=== PATIENT | female | born 1985 | race Caucasian/White ===

== ENCOUNTER 2021-09-01 04:35 | Emergency (ER) | payer OTHER ==
[~2021-09-01] VITALS: Ht 180.3 cm; Wt 116.6 kg
[2021-09-01 05:10] VITALS: BP_SYST 148
--- NOTE | 2021-09-01 05:18 | NUR ---
PT HAS HX OF KIDNEY STONES, PAIN STARTED TO RIGHT FLANK RADIATING INTO ADB 3 DAYS AGO. NO PAIN WITH URINATION, HAS NOTICED SMALL AMOUNT OF BLOOD IN URINE. PT AFEBRILE, HAS HAD NAUSEA WITH OCCASSIONAL VOMITING. RATES PAIN 6/10. PT PLACED ON GURNEY, BED IN LOWEST POSITION,LOCKED,ANDSIDERAIL UP X 1.
--- NOTE | 2021-09-01 05:22 | NUR ---
PT PROVIDED WITH UA CUP
--- NOTE | 2021-09-01 05:37 | NUR ---
DR WIGGINS AT BEDSIDE
[2021-09-01] MEDS: NACL 0.9% 1,000 ML IV ONE (06:02)
[2021-09-01] MEDS: ONDANSETRON HCL 4 MG/2 ML VIAL IVP ONE (06:03)
[2021-09-01] MEDS: KETOROLAC TROMETHAMINE 30 MG VIAL IVP ONE (06:03)
[2021-09-01] MEDS ORDERED: KETOROLAC TROMETHAMINE 30 MG VIAL ONE (06:05)
--- NOTE | 2021-09-01 06:09 | NUR ---
IV ESTABLISHED AND LABS COLLECTED AND WALKED TO LAB, MEDICATED ORDERED
[2021-09-01 06:12] LABS: BASOPHILS # (AUTO) 0.1 K/uL (0.0-0.2); BASOPHILS % (AUTO) 0.5 % (0.0-2.0); EOSINOPHILS # (AUTO) 0.3 K/uL (0.0-0.4); EOSINOPHILS % (AUTO) 2.1 % (0.0-4.0); HEMATOCRIT 42.7 % (36-48); HEMOGLOBIN 13.9 g/dL (12.0-16.0); LYMPHOCYTES # (AUTO) 1.5 K/uL (1.0-5.5); LYMPHOCYTES % (AUTO) 12.6 % (20.5-51.5); MEAN CORPUSCULAR HEMOGLOBIN 30 pg (27-31); MEAN CORPUSCULAR HGB CONC 33 % (32-36); MEAN CORPUSCULAR VOLUME 92 fL (79.0-98.0); MONOCYTES # (AUTO) 0.6 K/uL (0.0-1.0); MONOCYTES % (AUTO) 5.2 % (1.7-9.3); NEUTROPHILS # (AUTO) 9.6 K/uL (1.8-7.7); NEUTROPHILS % (AUTO) 79.6 % (40.0-70.0); PLATELET COUNT (AUTO) 293 K/uL (130-430); RED BLOOD CELL COUNT(AUTO) 4.65 MIL/uL (4.2-6.2); RED CELL DISTRIBUTION WIDTH 14.5 % (9.0-15.0)
--- NOTE | 2021-09-01 06:20 | NUR ---
PT STILL HAVING FLANK AND ABD PAIN, TORADOL DID NOT HELP PAIN.
[2021-09-01] MEDS: MORPHINE 4 MG INJ. 4 MG/ML VIAL IVP ONE (06:26)
[2021-09-01 06:30] LABS: CALCIUM 8.7 mg/dL (8.4-11.0); CREATININE 0.8 mg/dL (0.55-1.30); POTASSIUM 3.9 mmol/L (3.5-5.1)
[2021-09-01 06:36] LABS: ALBUMIN 3.8 g/dL (3.4-4.8); TOTAL BILIRUBIN 0.3 mg/dL (0.0-1.0)
--- NOTE | 2021-09-01 07:05 | NUR ---
PT AMBULATED TO RESTROOMTO PROVIDE UA SPECIMEN
--- NOTE | 2021-09-01 07:21 | NUR ---
REPORT GIVEN TO PARDEEP BRISENO
--- NOTE | 2021-09-01 07:39 | NUR ---
OPENING NOTE: REPORT RECEIVED FROM RN USING SBAR REPORTING. ALL CARE ASSUMED.
[2021-09-01 08:10] LABS: BILIRUBIN,URINE NEGATIVE (NEGATIVE); BLOOD, URINE 2+ (NEGATIVE); COLOR,URINE YELLOW (YELLOW); GLUCOSE,URINE NEGATIVE (NEGATIVE); KETONES,URINE NEGATIVE (NEGATIVE); LEUKOCYTE ESTERASE ,URINE NEGATIVE (NEGATIVE); NITRITE, URINE NEGATIVE (NEGATIVE); PROTEIN URINE NEGATIVE (NEGATIVE); UROBILINOGEN,URINE 0.2 (0.2-1.0)
[2021-09-01 08:46] LABS: CLARITY/URINE SLIGHTLY HAZY (CLEAR)
[2021-09-01 08:52] LABS: BACTERIA,URINE FEW /HPF (None Seen); WBC,URINE NONE SEEN /HPF (0-3)
--- NOTE | 2021-09-01 09:38 | NUR ---
BRAYAN ALFREDO at bedside examining patient.
[2021-09-01] MEDS ORDERED: IBUP-1969 PO (10:04)
[2021-09-01] MEDS ORDERED: ONDA-8 TL (10:04)
[2021-09-01] MEDS ORDERED: OXYC-128 PO (10:04)
[2021-09-01 10:21] VITALS: BP_SYST 148
== END 2021-09-01 10:21 | disposition home or self-care (01) ==
LOC: SED 04:35
DX: N13.2 Hydronephrosis with renal and ureteral calculous obstruction (principal); Z88.0 Allergy status to penicillin; Z88.1 Allergy status to other antibiotic agents; Z88.2 Allergy status to sulfonamides
CPT/HCPCS: 36415; 74176; 76376; 80053; 81000; 81025; 85025; 96361; 96374; 96375; 99284; J1885; J2270; J2405; J7030

== ENCOUNTER 2021-10-04 23:03 | Emergency (ER) | payer MEDICAID, OTHER ==
[~2021-10-04] VITALS: Ht 154.9 cm; Wt 117.9 kg
[~2021-10-04 23:03] MED LIST: IBUP-1969 PO; ONDA-8 TL; OXYC-128 PO
[2021-10-04 23:24] VITALS: BP_SYST 145
--- NOTE | 2021-10-04 23:30 | NUR ---
Patient triaged and placed in waiting room. VSS and patient appears in no acute distress at this time. Accompanied by SELF, awaiting available bed, and MD notified of need for MSE.
--- NOTE | 2021-10-04 23:32 | NUR ---
WALKED IN C/O LOW BACK PAIN X1 WEEK. WAS SEEN AT [facility] [place] AND DX WITH 3 KIDNEY STONES. 2 ON RIGHT AND 1 LEFT. GIVEN RX OF NORCO 5 AND MOTRIN, KEFLEX LAST TAKEN AT NOON.
[2021-10-05 00:19] LABS: MEAN CORPUSCULAR VOLUME 91 fL (79.0-98.0)
[2021-10-05 00:25] LABS: BASOPHILS # (AUTO) 0.2 K/uL (0.0-0.2); EOSINOPHILS % (AUTO) 6.4 % (0.0-4.0); HEMATOCRIT 39.7 % (36-48); HEMOGLOBIN 12.9 g/dL (12.0-16.0); LYMPHOCYTES # (AUTO) 2.5 K/uL (1.0-5.5); LYMPHOCYTES % (AUTO) 15.8 % (20.5-51.5); MEAN CORPUSCULAR HEMOGLOBIN 30 pg (27-31); MEAN CORPUSCULAR HGB CONC 33 % (32-36); MONOCYTES # (AUTO) 0.8 K/uL (0.0-1.0); MONOCYTES % (AUTO) 5.2 % (1.7-9.3); NEUTROPHILS # (AUTO) 11.3 K/uL (1.8-7.7); NEUTROPHILS % (AUTO) 71.6 % (40.0-70.0); PLATELET COUNT (AUTO) 288 K/uL (130-430); RED BLOOD CELL COUNT(AUTO) 4.37 MIL/uL (4.2-6.2); RED CELL DISTRIBUTION WIDTH 14.4 % (9.0-15.0); WHITE BLOOD COUNT (AUTO) 15.7 K/uL (4.8-10.8)
[2021-10-05] MEDS ORDERED: TAMSULOSIN HCL 0.4 MG CAP PO STA (00:31)
[2021-10-05 00:34] LABS: CALCIUM 8.8 mg/dL (8.4-11.0); CREATININE 0.94 mg/dL (0.55-1.30); POTASSIUM 4.2 mmol/L (3.5-5.1)
[2021-10-05 00:38] LABS: ALBUMIN 3.5 g/dL (3.4-4.8); TOTAL BILIRUBIN 0.2 mg/dL (0.0-1.0)
[2021-10-05] MEDS ORDERED: KETOROLAC TROMETHAMINE 30 MG VIAL IM ONE (00:45)
--- NOTE | 2021-10-05 00:58 | NUR ---
Received patient to ER w/ c/o right flank pain. h/o kidney stones. Introduced self to patient positioned for comfort. Patient resting quietly. No acute distress noted. Vital signs within normal range. Medicated w/ toradol 30mg im to left deltoid per MD orders. Will cont to monitor and observe for any adverse reaction. Urine specimen collected and analyzed in lab. Results pending and to be given to ER MD.
[2021-10-05] MEDS ORDERED: TAMSULOSIN HCL 0.4 MG CAP ONE (01:04)
[2021-10-05 02:44] LABS: BILIRUBIN,URINE NEGATIVE (NEGATIVE); BLOOD, URINE 3+ (NEGATIVE); CLARITY/URINE CLEAR (CLEAR); COLOR,URINE YELLOW (YELLOW); GLUCOSE,URINE NEGATIVE (NEGATIVE); KETONES,URINE NEGATIVE (NEGATIVE); LEUKOCYTE ESTERASE ,URINE 1+ (NEGATIVE); NITRITE, URINE NEGATIVE (NEGATIVE); PROTEIN URINE TRACE (NEGATIVE); UROBILINOGEN,URINE 0.2 (0.2-1.0)
[2021-10-05] MEDS ORDERED: ONDA-8 TL (02:56)
[2021-10-05] MEDS ORDERED: HYDR-3917 PO (02:56)
[2021-10-05] MEDS ORDERED: IBUP-1970 PO (02:56)
[2021-10-05 03:00] LABS: BACTERIA,URINE FEW /HPF (None Seen)
[2021-10-05] MEDS ORDERED: CEPH-548 PO (03:00)
--- NOTE | 2021-10-05 03:12 | NUR ---
Patient given written and verbal discharge instructions and verbalizes understanding. ER MD discussed with patient the results and treatment provided. Patient in stable condition. Rx of cephalexin, norco, ibuprofen, zofran given. Patient educated on pain management and to follow up with PMD. Opportunity for questions provided and answered. Medication side effect fact sheet provided.
[2021-10-05 03:15] VITALS: BP_SYST 147
== END 2021-10-05 03:12 | disposition home or self-care (01) ==
LOC: SED 23:03
DX: N13.2 Hydronephrosis with renal and ureteral calculous obstruction (principal); J45.909 Unspecified asthma, uncomplicated; Z88.0 Allergy status to penicillin; Z88.2 Allergy status to sulfonamides; Z88.1 Allergy status to other antibiotic agents; Z79.899 Other long term (current) drug therapy
CPT/HCPCS: 36415; 76770; 80053; 81000; 81025; 83690; 85025; 87086; 96372; 99284; J1885